=== PATIENT | male | born 1945 | race Caucasian/White ===

== ENCOUNTER 2017-09-07 06:24 | Inpatient (IN) ==
[2017-09-07] MEDS ORDERED: Vancomycin 1,000 MG in D5% in Water 250 ML IVPB ONE ×3 (06:59→21:00)
[2017-09-07] MEDS ORDERED: Lidocaine -MPF 1% 2 ML VIAL ID ONE (06:59)
[2017-09-07] MEDS ORDERED: CeFAZolin Syr 2,000MG/20 ML 2,000 MG/20 ML SYRINGE IVPB ONE (06:59)
[2017-09-07] MEDS ORDERED: Ringers Solution, Lactated 1,000 ML IVC SCH (07:00)
--- NOTE | 2017-09-07 07:08 | Anesthesia Evaluation PreOp ---
Date of Encounter: 09/07/17 Time of Encounter: 07:06 - Past History Planned Operation: left Fem-Pop BPG Cardiac History: HTN, Hyperlipidemia, Other (CAD, PAD, carotid stenosis, LLE claudication, severe pulm htn) Pulmonary History: Smoker, COPD NEUROLOGY HOSPITALIST History: Denies Any Significant HX Other Medical History: Thyroid (hypo) Alcohol Use: none Drug use: none Medications and Allergies Aspirin [Lo-Dose Aspirin EC] 81 mg PO DAILY 03/10/17 [History] Atorvastatin [Lipitor] 80 mg PO HS 03/10/17 [History] HYDROcodone/Acet 10/325 mg [[place] 10-325 mg] 1 tab PO Q4H PRN 03/10/17 [History] Isosorbide MONOnitrate (24 HR) [Imdur] 30 mg PO DAILY 03/10/17 [History] amLODIPine [Norvasc] 5 mg PO DAILY 03/10/17 [History] Budesonide/Formoterol 160/4.5 [Symbicort 160/4.5] 1 puff IH DAILY 07/19/17 [ History] Albuterol Sulfate [Albuterol Inhaler] 2 puff IH QID PRN 09/07/17 [History] Alfuzosin HCl [Uroxatral] 10 mg PO DAILY 09/07/17 [History] Ammonium Lactate [Zina-Hydrolac] 1 appl TP BID 09/07/17 [History] Buspirone HCl [Buspar] 5 mg PO BID 09/07/17 [History] Cilostazol [Pletal] 100 mg PO BID 09/07/17 [History] Diclofenac Sodium [Voltaren] 75 mg PO BID PRN 09/07/17 [History] Levothyroxine [Synthroid] [place] [address]/07/17 [History] Methyl Salicylate/Menthol [Arthritis Hot Pain Relief Crm] 1 appl TP QID PRN [History] Nitroglycerin [Nitrostat] 0.4 mg SL Q5M PRN 09/07/17 [History] 3 Allergy/AdvReac Type Severity Reaction Status Date / Time No Known Allergies Allergy Verified 09/07/17 06:49 - Meds/Allergy Pre-op Review Medications Reviewed: Yes Allergies Reviewed: Yes Beta Blockers on Current Med List: No Anesthesia Results - Labs Laboratory Tests 09/01/17 09/01/17 11:04 11:04 Hgb 12.8 L Hct 38.0 Sodium 138 Potassium 4.1 BUN 14 Creatinine 0.86 - Imaging EKG: report reviewed (SINUS BRADYCARDIA) Additional studies: cath : Impressions: Minimal atherosclerotic coronary artery disease. The left ventricle is normal and has abnormal contractility EF 70% echo: mpressions: Sinus bradycardia. HR low 40s. LVEF 60%. Normal LV chamber size, wall thickness and function. Indeterminate diastolic function. Normal right ventricular structure and function. No significant valvular disease. Severe pulmonary hypertension. Estimated RVSP 61 mmHg. carotid studies: Impressions: Findings: Bilateral carotid system have nonstenotic plaque. Anesthesia Exam Selected Entries 09/07/17 06:55 Temperature 97.9 F Pulse Rate 69 Respiratory Rate 18 Blood Pressure 103/62 O2 Sat by Pulse Oximetry 94 - HEENT Pupil (Motor): EOMI Mallampati: II Teeth: Edentulous Oral Opening: Greater than 3 - NEUROLOGY HOSPITALIST LOC: Oriented NEUROLOGY HOSPITALIST Motor: Normal RUE, Normal LUE, Normal RLE, Normal LLE, Normal Face NEUROLOGY HOSPITALIST Sensory: Normal: RUE, LUE, RLE, LLE, Face - Cardiac Rhythm: Regular Murmur: None - Pulmonary Breath Sounds: bilateral Clear Respiratory Effort: Symmetrical Anesthesia Assess/Plan ASA Score: 3 Modified Spencer Scale for Level of Consciousness: Cooperative, oriented, and tranquil Anesthetic Plan: General Monitoring Plan: Standard Monitors, A-Line Recovery Plan: PACU (discussed risks of GA and a-line, agrees to proceed)
[2017-09-07] MEDS ORDERED: Albuterol 2.5 MG/3 ML NEBULIZER ONE (07:10)
[2017-09-07] MEDS ORDERED: Albuterol 2.5 MG/3 ML NEBULIZER IH ONE (07:16)
--- NOTE | 2017-09-07 07:33 | History & Physical Report ---
Date of Encounter: 09/07/17 Time of Encounter: 07:30 24 Hour HP Update - Instructions Instructions: If the History and Physical is less than 30 days old and was completed prior to A.M. admission and or procedure and has NOT been updated on calendar day of procedure please complete this update prior to performing procedure. - Update Patient reports changes in Medical Condition: No Changes in examination, assessment, or condition: No Changes in Medication: No Preop tests/diagnostics Reviewed: Yes Surgery Remains Indicated: Yes Consent for Planned Operative Procedure(s) Verified: Yes - Pre-Operative Checklist Preoperative Checklist Indicated: Yes Prophylactic Antibiotic Ordered: Yes (Vancomycin due to MRSA risk) Home Medications Include Beta Kailyn: No Beta Kailyn Taken Today (Day of Surgery): No Beta Kailyn Taken Yesterday (Day Prior to Surgery): No Is VTE Prophylaxis Indicated?: Yes
[2017-09-07] MEDS ORDERED: Heparin 1,000 UNITS/500 mL 500 ML ONE ×2 (07:48→09:19)
[2017-09-07] MEDS ORDERED: *HR* Phenylephrine 10 MG/ML VIAL ONE (08:34)
[2017-09-07] MEDS ORDERED: Lidocaine -MPF 4% 5 ML AMPUL ONE (08:34)
[2017-09-07] MEDS ORDERED: Ondansetron 4 MG/2 ML VIAL ONE (08:34)
[2017-09-07] MEDS ORDERED: Lidocaine -MPF 2% 2 ML VIAL ONE ×3 (08:34→10:12)
[2017-09-07] MEDS ORDERED: *HR* Propofol 200 MG/20 ML VIAL IVP ONE (08:34)
[2017-09-07] MEDS ORDERED: *HR* FentaNYL (PF) 100 MCG/2 ML VIAL ONE ×2 (08:34→10:57)
[2017-09-07] MEDS ORDERED: *HR* Midazolam HCl 2 MG/2 ML VIAL ONE (08:34)
[2017-09-07] MEDS ORDERED: *HR* Succinylcholine 200 MG/10 ML VIAL IVP ONE (08:34)
[2017-09-07] MEDS ORDERED: Dexamethasone 4 MG/ML VIAL ONE (08:34)
[2017-09-07] MEDS ORDERED: *HR* Rocuronium Bromide 50 MG/5 ML VIAL ONE (08:34)
[2017-09-07] MEDS ORDERED: Vancomycin 1,000 MG VIAL ONE (09:18)
[2017-09-07] MEDS ORDERED: Lacri-Lube 3.5 GM TUBE ONE (09:57)
[2017-09-07] MEDS ORDERED: EPHEDrine 50 MG/ML VIAL ONE (10:00)
[2017-09-07] MEDS ORDERED: *HR* Heparin 5,000 UNIT/ML VIAL ONE (10:58)
[2017-09-07] MEDS ORDERED: *HR* Promethazine 25 MG/ML VIAL IVP PRN (11:30)
[2017-09-07] MEDS ORDERED: *HR* Labetalol 20 MG/4 ML SYRINGE IVP PRN ×2 (11:30→13:46)
[2017-09-07] MEDS ORDERED: Ondansetron 4 MG/2 ML VIAL IVP ONE (11:30)
--- NOTE | 2017-09-07 12:38 | Operative Note ---
Date of procedure: 09/07/17 Pre-op diagnosis: Peripheral vascular disease with disabling claudication Post-op diagnosis: same Procedure: 1. Left common and deep femoral thromboendarterectomy. 2. Left common femoral artery to above knee popliteal artery bypass with 6mm Distflo minicuff graft. Complications: None Anesthesia: GETA Surgeon: Mack Hanley Was there an physician assistant certified present: No Estimated blood loss (cc): 100 Specimen: Left femoral plaque Condition: stable Disposition: PACU Procedure in Detail: Indications: The patient is a 72 year old male with a history of peripheral vascular disease with severe disabling left lower extremity claudication. Angiography revealed left femoral to popliteal artery disease including a superficial femoral artery occlusion. Revascularization was recommended for symptomatic relief. Procedure: The patient was identified in the preoperative area. The risks, benefits, and alternatives of the procedure were discussed. All questions were answered. The patient was taken to the operating room and placed in supine position on the operating room table. After the induction of general endotracheal anesthesia, he was cleaned and draped in normal sterile fashion. An oblique incision was made over the left groin sharply. Hemostasis was obtained with electrocautery. Through a process of blunt, sharp, and electrocautery dissection, the left common, deep and superficial femoral arteries were dissected circumferentially and surrounded with vessel loops. An incision was made on the left medial distal thigh sharply. Hemostasis was obtained with electrocautery. Through a process of blunt, sharp, and electrocautery dissection, the above-knee popliteal artery was dissected proximally and distally and surrounded with vessel loops. The Distaflo graft was tunneled between the popliteal and femoral incisions. The patient received 5000 units of heparin intravenously. After waiting adequate time for the heparin to circulate, tension was applied to the popliteal artery vessel loops. The popliteal artery was occluded and a longitudinal arteriotomy was made in the popliteal artery. The distal end of the graft was sutured in place with a running 6-0 Prolene. The distal arterial anastomosis was not completed at this time. Tension was applied to the femoral vessel loops. An arteriotomy was made in the common femoral artery. Stenotic partially occlusive plaque was noted in the common and deep femoral artery. A dental freer was used to perform a thromboendarterectomy on the common and deep femroal arteries. Significant retrograde deep femoral flow was noted after the endarterectomy and strong pulsatile antegrade flow was noted. The graft was cut to fit the arteriotomy and sutured in place with a running 6-0 prolene. Flow was restored in the femoral vessels by releasing tension from the loops. The graft was flamped with an atraumatic clamp. The popliteal vessels were flushed and then reoccluded. Heparinized saline was infused into the lumen. The popliteal anastamosis was cmpleted and then tied. Flow was restored by releasing tension on the vessel loops. Polyphasic signals were noted distal to the distal anastomosis as well as at the posterior tibial artery. Wounds were irrigated with antibiotic-containing saline. Thrombin and gelfoam were used to aid in hemostasis. Platelet rich and platelet poor plasma were infused into the wounds. Meticulous hemostasis was obtained throughout the wound with electrocautery. Wounds were reapproximated with layers of 2-0 and 3- 0 Vicryl. Skin was reapproximated with 3-0 Monocryl. Sterile dressing was applied. The patient was extubated and taken to recovery room in stable condition.
[2017-09-07] MEDS: *HR* HYDROmorphone (PF) 1 MG/ML SYRINGE IVP PRN ×2 (13:01→13:07)
--- NOTE | 2017-09-07 13:42 | Anesthesia Evaluation Post Op ---
Date of Encounter: 09/07/17 Time of Encounter: 13:44 - Vital Signs Vital Signs: Vital Signs - Last 8 Hours Temp Pulse Resp BP Pulse Ox 09/07/17 13:34 97.7 F 64 16 120/63 94 09/07/17 13:24 97.7 F 66 18 114/63 92 09/07/17 13:14 64 14 105/58 92 09/07/17 13:04 97.1 F L 70 12 103/64 92 09/07/17 12:54 67 13 117/54 92 09/07/17 12:44 71 15 115/58 92 09/07/17 12:34 97.0 F L 70 12 116/61 94 09/07/17 07:31 18 103/62 94 09/07/17 06:55 97.9 F 69 18 103/62 94 Intake and Output 09/06/17 09/07/17 09/07/17 23:59 07:59 15:59 Output Total 300 / 300 Balance -300 / -300 Output: Estimated Blood Loss 100 / 100 Urine Amount (Catheter) 200 / 200 Other: Weight 60.328 kg Patient Weight 09/07/17 23:59 Weight 60.328 kg - Lungs Lungs: Clear Ascult./Percussion - Airway Airway: Non-obstructed - Cardiovascular Regular Rate, Baseline Rhythm - Mental Status Mental Status: Alert & Oriented, Answers Appropriately - Pain Pain Scale: 0 Pain Scale used: Numeric (1 - 10) - Nausea Vomiting Nausea Vomiting: Not Present - Hydration Hydration: Tolerates oral liquids - Discharge PostOp Status: Transfer Patient to floor
[2017-09-07] MEDS ORDERED: *HR* HYDROcodone/Acet 5/325 mg TABLET PO PRN (13:46)
[2017-09-07] MEDS ORDERED: Acetaminophen 325 MG TABLET PO PRN (13:46)
[2017-09-07] MEDS ORDERED: Ondansetron 4 MG/2 ML VIAL IVP PRN (13:46)
[2017-09-07] MEDS ORDERED: Naloxone 0.4 MG/ML INJ IVP PRN (13:46)
[2017-09-07] MEDS ORDERED: Diclofenac Sodium 75 MG TABLET PO PRN (13:46)
[2017-09-07] MEDS: *HR* Morphine 2 MG/ML SYRINGE IVP PRN ×2 (13:55→20:02)
[2017-09-07] MEDS: *HR* OxyCODONE Immed Rel 5 MG TABLET PO PRN ×2 (15:12→21:12)
[2017-09-07] MEDS: *HR* Metoprolol 5 MG/5 ML VIAL IVP SCH (17:39)
[2017-09-07] MEDS: CeFAZolin Premix DUPLEX 2,000 MG/50 ML BAG IVPB SCH (17:44)
[2017-09-07] MEDS: Budesonide/Formoterol 160/4.5 MDI IH SCH (19:50)
[2017-09-07] MEDS: Ammonium Lactate 30 APPL/225 GM BOTTLE TP SCH (21:12)
[2017-09-08] MEDS: *HR* Metoprolol 5 MG/5 ML VIAL IVP SCH ×2 (00:24→05:47)
[2017-09-08] MEDS: *HR* Morphine 2 MG/ML SYRINGE IVP PRN ×4 (00:31→08:21)
[2017-09-08] MEDS: CeFAZolin Premix DUPLEX 2,000 MG/50 ML BAG IVPB SCH (02:36)
[2017-09-08 04:21] LABS: Basophils % 0.2 %; Eosinophils % 0.1 %; Hematocrit 32.4 % (37.5-50.1); Immature Granulocytes % 0.5 % (0-4); Lymphocytes # 1.3 K/mcL (0.6-4.6); Lymphocytes % 16.1 %; Mean Corpuscular HGB Conc 34.6 g/dL (31.6-35.5); Mean Corpuscular Hemoglobin 32.6 pg (28.0-33.3); Mean Corpuscular Volume 94.2 fL (83.0-100.0); Mean Platelet Volume 9.1 fL (9.4-12.4); Monocytes # 0.8 K/mcL (0.0-1.3); Monocytes % 10.2 %; Platelet Count 194 K/mcL (140-400); Red Blood Count 3.44 M/mcL (4.19-5.50); Red Cell Distribution Width 15.5 % (11.5-14.5); Segmented Neutrophils % 72.9 %
[2017-09-08 04:24] LABS: Hemoglobin 11.2 g/dL (12.9-16.9)
[2017-09-08 04:44] LABS: BUN/Creatinine Ratio 12 (6-26); Blood Urea Nitrogen 9 mg/dL (8-23); Calcium 8.8 mg/dL (8.6-10.3); Carbon Dioxide 25 mEq/L (23-29); Chloride 106 mEq/L (98-107); Glucose 97 mg/dL (70-105); Osmolality,Calculated 285 (280-300); Potassium 3.9 mEq/L (3.5-5.1); Sodium 138 mEq/L (136-145); eGFR For African Americans > 60 (> 60); eGFR For Non-African Americans > 60 (> 60)
[2017-09-08] MEDS: *HR* OxyCODONE Immed Rel 5 MG TABLET PO PRN (05:51)
[2017-09-08] MEDS ORDERED: *HR* Heparin 5,000 UNIT/ML VIAL SQ SCH ×2 (06:00)
--- NOTE | 2017-09-08 06:37 | Discharge Summary ---
Date of Encounter: 09/08/17 Time of Encounter: 07:25 - Discharge Diagnosis (1) Atherosclerosis of [place] arteries of extremities with intermittent claudication, left leg Priority: Primary Status: Chronic Comments: The patient is postoperative day #1 after a left femoral endarterctomy and left femoral to popliteal artery bypass. His wounds are healing. He has palpable pedal pulses. He will be discharged today. (2) Essential hypertension Priority: Primary Status: Chronic (3) COPD (chronic obstructive pulmonary disease) Priority: Secondary Status: Chronic Qualifiers: COPD type: emphysema Emphysema type: panlobular Qualified Code(s): J43.1 - Panlobular emphysema (4) CAD (coronary artery disease) Priority: Secondary Status: Chronic Qualifiers: Coronary Disease-Associated Artery/Lesion type: [place] artery [place] vs. transplanted heart: [place] heart Associated angina: without angina Qualified Code(s): I25.10 - Atherosclerotic heart disease of [place] coronary artery without angina pectoris (5) Chronic anemia Priority: Secondary Status: Chronic Comments: The patient has chronic anemia. He is hemodynamically stable without evidence of ongoing blood loss. - Discharge Medications Prescriptions: OxyCODONE/APAP 5/325 [Percocet 5/325 MG] 1 each PO Q6HR PRN 7 Days #25 tablet PRN Reason: POSTOPERATIVE PAIN Home Medications: Aspirin [Lo-Dose Aspirin EC] 81 mg PO DAILY 03/10/17 [History] Atorvastatin [Lipitor] 80 mg PO HS 03/10/17 [History] HYDROcodone/Acet 10/325 mg [[place] 10-325 mg] 1 tab PO Q4H PRN 03/10/17 [History] Isosorbide MONOnitrate (24 HR) [Imdur] 30 mg PO DAILY 03/10/17 [History] amLODIPine [Norvasc] 5 mg PO DAILY 03/10/17 [History] Budesonide/Formoterol 160/4.5 [Symbicort 160/4.5] 2 puff IH BID 07/19/17 [ History] Albuterol Sulfate [Albuterol Inhaler] 2 puff IH QID PRN 09/07/17 [History] Alfuzosin HCl [Uroxatral] 10 mg PO DAILY 09/07/17 [History] Ammonium Lactate [Zina-Hydrolac] 1 appl TP BID 09/07/17 [History] Buspirone HCl [Buspar] 5 mg PO BID 09/07/17 [History] Cilostazol [Pletal] 100 mg PO BID 09/07/17 [History] Diclofenac Sodium [Voltaren] 75 mg PO BID PRN 09/07/17 [History] Levothyroxine [Synthroid] 50 mcg PO 0630 09/07/17 [History] Methyl Salicylate/Menthol [Arthritis Hot Pain Relief Crm] 1 appl TP QID PRN [History] Nitroglycerin [Nitrostat] 0.4 mg SL Q5M PRN 09/07/17 [History] OxyCODONE/APAP 5/325 [Percocet 5/325 MG] 1 each PO Q6HR PRN 7 Days #25 tablet [Rx] Allergies/Adverse Reactions: 3 Allergy/AdvReac Type Severity Reaction Status Date / Time No Known Allergies Allergy Verified 09/07/17 06:49 Date of admission: 09/07/17 13:45 Primary care physician: PCP DC Procedure(s) Performed: Left femoral endarterectomy, left femoral to popliteal artery bypass. Discharging clinician: Mack Hanley Anticipated date of discharge: 09/08/17 - Patient Status Disposition: Home, Self-Care Condition: Good Functional capacity at discharge: independent ambulation Overall status at discharge: patient is back to baseline - Discharge Instructions Follow Up With: Mack Hanley MD [Partnered Physician] - 10/09/17 9:50 am DC,PCP [Primary Care Provider] - 09/12/17 11:30 am Additional Instructions: May remove bandage and shower on 09/09/17. Wash wound gently and pat to dry. Apply dry gauze to wound daily for 7 days. No tub baths or swimming until 09/30/17. Call Dr. Hanley at [phone] with questions or concerns. - Diet and Activity Activity: increase activity as tolerated Diet: advance to your usual diet - Hospital Course Hospital course: Mr. Barkley is a 72 year old male admitted on 09/07/17. He underwent a left femoral endarterectomy and left femoral to popliteal artery bypass. He was discharged on postoperative day #1 without complication. - Time Spent with Patient Total time spent providing and/or coordinating discharge services: Exam Vital Signs, Last 4 Hours Temp Pulse Resp BP Pulse Ox 09/08/17 04:00 46 144/75 09/08/17 03:15 98.4 F 50 19 142/67 94 General: Present: Conversant, No Apparent Distress Cardiac: Present: Reg Rate and Rhythm Lungs: Present: Normal Breath Sounds Neuro: Present: Alert and responsive, No focal deficits noted Abdomen: Present: Soft Vascular: Present: Normal capillary refill, Pulse, normal, Surgical incisions ( clean and dry without erythema or hematoma). Absent: Cyanosis, Edema - VTE Documentation of Mechanical Device: Intermittent pneumatic compression device
[2017-09-08 07:53] VITALS: BP 139/81
[2017-09-08] MEDS: Budesonide/Formoterol 160/4.5 MDI IH SCH (08:17)
[2017-09-08] MEDS: Ammonium Lactate 30 APPL/225 GM BOTTLE TP SCH (08:21)
[2017-09-08] MEDS ORDERED: Aspirin Enteric Coated 81 MG Tablet PO SCH (09:00)
[2017-09-08] MEDS ORDERED: Isosorbide MONOnitrate (24 HR) 30 MG TAB.ER.24H PO SCH (09:00)
[2017-09-08] MEDS ORDERED: amLODIPine 5 MG TABLET PO SCH (09:00)
== END 2017-09-08 10:34 | disposition home or self-care (01) | DRG 254 ==
LOC: SAMDAY 06:24 → 2NNU 13:45
PROVIDERS: ADMIT Surgery; ATTEND Surgery

== ENCOUNTER 2018-01-12 06:34 | Inpatient (IN) ==
[~2018-01-12 06:34] MED LIST: Vancomycin 1,000 MG, Sodium Chloride IRRigation 1,000 ML IR ONE
[2018-01-12] MEDS ORDERED: Albuterol 2.5 MG/3 ML NEBULIZER IH ONE (06:58)
[2018-01-12] MEDS ORDERED: Lidocaine -MPF 4% 5 ML AMPUL ONE (07:18)
[2018-01-12] MEDS ORDERED: Heparin 1,000 UNITS/500 mL 0 ML ONE (07:21)
--- NOTE | 2018-01-12 07:38 | Anesthesia Evaluation PreOp ---
Date of Encounter: 01/12/18 Time of Encounter: 07:35 - Past History Planned Operation: L-Fem Pop Bypass Cardiac History: [place] (CAD), HTN, Hyperlipidemia, Other (pVD w/ LE claudicaiton) Pulmonary History: Smoker, COPD, Other (SEVERE PulmHtn per ECHO 04/2017) SE[employer] [place] B[employer]ER History: Other (PTSD, RA) Other Medical History: Thyroid Anesthesia History: No Prior Anesthetic Complications, Past Anesthesia (Cardiac Cath, L-common & deep Femoral Thromboendaretectomy,) Alcohol Use: none Drug use: none Medications and Allergies Aspirin [Lo-Dose Aspirin EC] 81 mg PO DAILY 03/10/17 [History] Atorvastatin [Lipitor] 80 mg PO HS 03/10/17 [History] HYDROcodone/Acet 10/325 mg [[place] 10-325 mg] 1 tab PO Q4H PRN 03/10/17 [History] Isosorbide MONOnitrate (24 HR) [Imdur] 30 mg PO DAILY 03/10/17 [History] amLODIPine [Norvasc] 5 mg PO DAILY 03/10/17 [History] Budesonide/Formoterol 160/4.5 [Symbicort 160/4.5] 2 puff IH BID 07/19/17 [ History] Albuterol Sulfate [Albuterol Inhaler] 2 puff IH QID PRN 09/07/17 [History] Alfuzosin HCl [Uroxatral] 10 mg PO DAILY 09/07/17 [History] Ammonium Lactate [Zina-Hydrolac] 1 appl TP BID 09/07/17 [History] Buspirone HCl [Buspar] 5 mg PO BID 09/07/17 [History] Cilostazol [Pletal] 100 mg PO BID 09/07/17 [History] Diclofenac Sodium [Voltaren] 75 mg PO BID PRN 09/07/17 [History] Levothyroxine [Synthroid] 50 mcg PO 0630 09/07/17 [History] Methyl Salicylate/Menthol [Arthritis Hot Pain Relief Crm] 1 appl TP QID PRN [History] Nitroglycerin [Nitrostat] 0.4 mg SL Q5M PRN 09/07/17 [History] OxyCODONE/APAP 5/325 [Percocet 5/325 MG] 1 each PO Q6HR PRN 7 Days #25 tablet [Rx] Gabapentin [Neurontin] 200 mg PO TID 01/12/18 [History] Nicotine Patch [Nicoderm] 21 mg TD DAILY 01/12/18 [History] 3 Allergy/AdvReac Type Severity Reaction Status Date / Time No Known Allergies Allergy Verified 09/07/17 06:49 - Meds/Allergy Pre-op Review Medications Reviewed: Yes Allergies Reviewed: Yes Beta Blockers on Current Med List: No Anesthesia Results - Labs Laboratory Tests 01/11/18 01/11/18 01/11/18 08:23 08:23 08:23 WBC 6.4 Hgb 11.7 L Hct 34.1 L Plt Count 221 PT 11.6 INR 1.1 APTT 28.7 Sodium 139 Potassium 3.9 Chloride 108 H Carbon Dioxide 26 BUN 15 Creatinine 0.87 Est GFR (Non-Af Amer) > 60 Calcium 9.3 ECHO 04/2017 Impressions: Sinus bradycardia. HR low 40s. LVEF 60%. Normal LV chamber size, wall thickness and function. Indeterminate diastolic function. Normal right ventricular structure and function. No significant valvular disease. Severe pulmonary hypertension. Estimated RVSP 61 mmHg. Left Ventricular Wall Motion: Rest Echo Findings All wall segments showed normal motion. - Imaging EKG: image reviewed (46bpm - SINUS BRADYCARDIA Electronically Signed On 2016 11:21:43 EDT by Reynaldo Gonzalez MD) Anesthesia Exam O2 Sat Height 1.78 m Height 1.78 m Weight 61.235 kg Weight 61.235 kg O2 Sat by Pulse Oximetry 94 Vital Signs Temp Pulse Resp BP Pulse Ox 97.7 F 54 18 126/56 94 01/12/18 06:50 01/12/18 06:50 01/12/18 06:50 01/12/18 06:50 01/12/18 06:50 Weight: 5'10" NPO (# of Hours): 135# BMI = 19.4 - HEENT Pupil (Motor): Pupils equal, EOMI Mallampati: II Teeth: Edentulous Oral Opening: Greater than 3 - [employer] [place] B[employer]ER LOC: Oriented [employer] [place] [employer] Motor: Normal RUE, Normal LUE, Normal RLE, Normal LLE, Normal Face [employer] [place] [employer] Sensory: Normal: RUE, LUE, RLE, LLE, Face - Cardiac Rhythm: Regular Murmur: None - Pulmonary Breath Sounds: bilateral Clear Respiratory Effort: Symmetrical Anesthesia Assess/Plan ASA Score: 3 (CAD, PVDz, HTN, Chol, Smoker, COPD) Anesthetic Plan: General Monitoring Plan: Standard Monitors, A-Line Recovery Plan: PACU Anes Supervising Prov Stmt: Pt seen/evaluated, R&B Discussed, questions answered and consent obtained. - MD Taz
[2018-01-12] MEDS ORDERED: *HR* Propofol 200 MG/20 ML VIAL IVP ONE (07:44)
[2018-01-12] MEDS ORDERED: *HR* FentaNYL (PF) 100 MCG/2 ML VIAL ONE ×2 (07:44→10:46)
[2018-01-12] MEDS ORDERED: Famotidine 20 MG/2 ML VIAL IVP ONE (07:46)
[2018-01-12] MEDS ORDERED: Acetaminophen IV 1,000 MG/100 ML INFUS..BTL IVPB ONE (07:46)
[2018-01-12] MEDS ORDERED: Pregabalin 75 MG CAPSULE PO ONE (07:47)
[2018-01-12] MEDS: Ringers Solution, Lactated 1,000 ML IVC SCH ×2 (07:56→12:41)
[2018-01-12] MEDS ORDERED: Heparin 1,000 UNITS/500 mL 1,000 ML ONE (07:58)
[2018-01-12] MEDS ORDERED: *HR* LORazepam 1 MG TABLET PO PRN (07:59)
--- NOTE | 2018-01-12 08:02 | History & Physical Report ---
Date of Encounter: 01/12/18 Time of Encounter: 07:58 24 Hour HP Update - Instructions Instructions: If the History and Physical is less than 30 days old and was completed prior to A.M. admission and or procedure and has NOT been updated on calendar day of procedure please complete this update prior to performing procedure. - Update Patient reports changes in Medical Condition: No Changes in examination, assessment, or condition: No Changes in Medication: No Preop tests/diagnostics Reviewed: Yes Surgery Remains Indicated: Yes Consent for Planned Operative Procedure(s) Verified: Yes - Pre-Operative Checklist Preoperative Checklist Indicated: Yes Prophylactic Antibiotic Ordered: Yes (vancomycin due to MRSA risk) Home Medications Include Beta Kailyn: No Beta Kailyn Taken Today (Day of Surgery): No Beta Kailyn Taken Yesterday (Day Prior to Surgery): No Is VTE Prophylaxis Indicated?: Yes
[2018-01-12] MEDS ORDERED: CeFAZolin Syr 2,000MG/20 ML 2,000 MG/20 ML SYRINGE IVPB ONE (08:09)
[2018-01-12] MEDS ORDERED: Ondansetron 4 MG/2 ML VIAL ONE (09:05)
[2018-01-12] MEDS ORDERED: Neostigmine Methylsulfate 3 MG/3 ML SYRINGE ONE (09:05)
[2018-01-12] MEDS ORDERED: Dexamethasone 4 MG/ML VIAL ONE (09:05)
[2018-01-12] MEDS ORDERED: Lidocaine -MPF 2% 2 ML VIAL ONE (09:05)
[2018-01-12] MEDS ORDERED: *HR* Rocuronium Bromide 50 MG/5 ML VIAL ONE (09:05)
[2018-01-12] MEDS ORDERED: *HR* Succinylcholine 200 MG/10 ML VIAL IVP ONE (09:05)
[2018-01-12] MEDS ORDERED: MORPHINE SUL Oral CONC 10 MG/0.5 ML ORAL.SYG SL PRN (09:07)
[2018-01-12] MEDS ORDERED: *HR* OxyCODONE Immed Rel 5 MG TABLET PO PRN (09:07)
[2018-01-12] MEDS ORDERED: *HR* HYDROmorphone 2 MG TABLET PO PRN (09:07)
[2018-01-12] MEDS ORDERED: *HR* Meperidine 25 MG/ML SYRINGE IVP PRN (09:07)
[2018-01-12] MEDS ORDERED: *HR* Labetalol 20 MG/4 ML SYRINGE IVP PRN ×2 (09:07→13:10)
[2018-01-12] MEDS ORDERED: Ondansetron 4 MG/2 ML VIAL IVP ONE (09:07)
[2018-01-12] MEDS ORDERED: EPHEDrine 50 MG/ML VIAL ONE ×2 (09:16→10:02)
[2018-01-12] MEDS ORDERED: *HR* PHENYLEPHRINE 1,000 MCG/10 ML SYRINGE IVP ONE (09:19)
[2018-01-12] MEDS ORDERED: *HR* Phenylephrine 10 MG/ML VIAL ONE (10:10)
--- NOTE | 2018-01-12 11:36 | Operative Note ---
Date of procedure: 01/12/18 Pre-op diagnosis: Peripheral vascular disease with disabling claudication Post-op diagnosis: same Procedure: 1. Left common femoral to above knee popliteal artery bypass graft thrombectomy. 2. Left common femoral endarterectomy. Complications: None Anesthesia: GETA Surgeon: Mack Hanley Was there an nurseryman assistant present: No Estimated blood loss (cc): 50 Specimen: Left lower extremity thrombus and plaque Condition: stable Disposition: PACU Procedure in Detail: Indications: The patient is a 72 year old male with a history of peripheral vascular disease with disabling claudication, hypertension, hyperlipidemia and tobacco abuse. He has previously undergone a left femoral to above knee popliteal artery bypass for a left superficial femoral artery occlusion. He presented to clinic with progressive disabling left lower stomach claudication. An arterial duplex revealed that his graft was occluded graft was occluded. Thrombectomy with possible revision was recommended to alleviate his symptoms and reduce his risk of limb loss. Procedure: The patient was identified in the preoperative area. The risks, benefits and alternatives were discussed and all questions were answered. The patient was taken to the operating room and placed in the supine position on the operating room table. After the induction of general endotracheal anesthesia, the patient was cleaned and draped in the normal sterile fashion. An oblique incision was made sharply through her previous left groin scar overlying the femoral vessels. Hemostasis was obtained with electrocautery. Through a process of blunt, sharp and electrocautery dissection, the distal external iliac, deep and superficial femoral arteries were dissected and surrounded with vessel loops. The proximal limb of the left femoral to popliteal artery bypass graft was also dissected and surrounded with vesel loops. The patient received a 5000 unit bolus of heparin. After waiting adequate time for the heparin to circulate, the vessels and graft were occluded with the vessel loops and atraumatic vascular clamps. A longitudinal arteriotomy was made into the [place] of the bypass graft. No flow was noted on release of the loops. A [address] lucian jenn catheter was passed into the femoral to popliteal artery bypass and inflated. It was withdrawn and some acute thrombus and chronic embolic material was retrieved. Multiple passes were performed until no additional material was retrieved. The specimen was sent to pathology. Retrograde flow was noted at this time. Intimal hyperplasia and plaque was noted to be present along the common femoral artery extending into the anastomosis. Using a dental freer, an endarectomy was performed on the deep femoral artery. Upon completion of the endarterectomy , pulsatile antegrade flow was noted. The graftotomy was reapproximated with a running 6-0 prolene. Prior to completing the closure, the vessels were flushed, the graft was flushed heparin was infused into the lumen. Flow was restored in the [place] vessels and graft. Polyphasic signals were identified in the posterior tibial and dorsalis pedis arteries below the ankle. The wound was irrigated with antibiotic containing saline. Hemostasis was obtained with electrocautery. Platelet rich and platelet poor plasma were infused into the wound. The wound was reapproximated with 2-0 and 3-0 vicryl. Skin was reapproximated with 3-0 Monocryl. Sterile dressings were applied. The patient was extubated and taken to the recover room in stable condition.
--- NOTE | 2018-01-12 11:41 | Discharge Summary ---
<Marcin Moore - Last Filed: 01/13/18 09:29> Orders not resulted at time of discharge: Pending orders 01/12/18 08:42 Red Blood Cells [BBK] Routine 01/12/18 11:32 Surgical Pathology [PTH] Routine Date of Encounter: 01/13/18 Time of Encounter: 09:00 - Hospital Course Hospital course: Mr. Barkley is a 72 year old male - Time Spent with Patient Total time spent providing and/or coordinating discharge services: - Discharge Medications Home Medications: Aspirin [Lo-Dose Aspirin EC] 81 mg PO DAILY 03/10/17 [History] Atorvastatin [Lipitor] 80 mg PO HS 03/10/17 [History] HYDROcodone/Acet 10/325 mg [[place] 10-325 mg] 1 tab PO Q4H PRN 03/10/17 [History] Isosorbide MONOnitrate (24 HR) [Imdur] 30 mg PO DAILY 03/10/17 [History] amLODIPine [Norvasc] 5 mg PO DAILY 03/10/17 [History] Budesonide/Formoterol 160/4.5 [Symbicort 160/4.5] 2 puff IH BID 07/19/17 [ History] Albuterol Sulfate [Albuterol Inhaler] 2 puff IH QID PRN 09/07/17 [History] Alfuzosin HCl [Uroxatral] 10 mg PO DAILY 09/07/17 [History] Ammonium Lactate [Zina-Hydrolac] 1 appl TP BID 09/07/17 [History] Buspirone HCl [Buspar] 5 mg PO BID 09/07/17 [History] Cilostazol [Pletal] 100 mg PO BID 09/07/17 [History] Diclofenac Sodium [Voltaren] 75 mg PO BID PRN 09/07/17 [History] Levothyroxine [Synthroid] 50 mcg PO 0630 09/07/17 [History] Methyl Salicylate/Menthol [Arthritis Hot Pain Relief Crm] 1 appl TP QID PRN [History] Nitroglycerin [Nitrostat] 0.4 mg SL Q5M PRN 09/07/17 [History] Clopidogrel [Plavix] 75 mg PO DAILY #30 tablet 01/12/18 [Rx] Gabapentin [Neurontin] 200 mg PO TID 01/12/18 [History] Mirtazapine [Remeron] 7.5 mg PO HS 01/12/18 [History] Nicotine Patch [Nicoderm] 21 mg TD DAILY 01/12/18 [History] OxyCODONE/APAP 5/325 [Percocet 5/325 MG] 1 each PO Q6HR PRN 5 Days #20 tablet [Rx] Allergies/Adverse Reactions: 3 Allergy/AdvReac Type Severity Reaction Status Date / Time No Known Allergies Allergy Verified 09/07/17 06:49 Date of admission: 01/12/18 13:03 Primary care physician: PCP [place] Exam Vital Signs, Last 4 Hours Temp Pulse Resp BP Pulse Ox 01/13/18 07:26 97.7 F 64 16 123/82 98 General: Present: Conversant HEENT: Present: Trachea midline, Pupils equal Cardiac: Present: Reg Rate and Rhythm, Normal S1 and S2, No Murmur Lungs: Present: Normal Breath Sounds, No Wheeze, Rales, Rhonchi Vascular: Present: Normal capillary refill, Pulse, normal, Surgical incisions ( Incision looks great) Skin: Present: No rashes noted on visualized skin Musculoskeletal: Present: No Chest Wall Tenderness - Patient Status Disposition: Home, Self-Care Condition: Good Functional capacity at discharge: independent ambulation Overall status at discharge: patient is back to baseline - Discharge Instructions Instructions: Peripheral Vascular Disorders (DC), Chronic Obstructive Pulmonary Disease (DC), Chronic Hypertension (DC) Follow Up With: Mack Hanley MD [Partnered Physician] - 02/19/18 11:00 am [place],PCP [Primary Care Provider] - 01/19/18 11:00 am (This is in the [facility] office) <Mack Hanley - Last Filed: 01/19/18 05:55> Orders not resulted at time of discharge: Pending orders 01/12/18 08:42 Red Blood Cells [BBK] Routine 01/12/18 11:32 Surgical Pathology [PTH] Routine Date of Encounter: 01/13/18 - Discharge Diagnosis (1) 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 (2) Essential hypertension Priority: Secondary Status: Chronic (3) COPD (chronic obstructive pulmonary disease) Priority: Secondary Status: Chronic Qualifiers: COPD type: emphysema Emphysema type: panlobular Qualified Code(s): J43.1 - Panlobular emphysema (4) CAD (coronary artery disease) Priority: Secondary Status: Chronic Qualifiers: Coronary Disease-Associated Artery/Lesion type: ruby artery [place] vs. transplanted heart: ruby heart Associated angina: without angina Qualified Code(s): I25.10 - Atherosclerotic heart disease of ruby coronary artery without angina pectoris (5) Chronic anemia Priority: Secondary Status: Chronic Comments: The patient has chronic anemia with acute expected postoperative blood loss anemia. He he was hemodynamically stable without evidence of ongoing blood loss. (6) Tobacco abuse Priority: Secondary Status: Acute - Hospital Course Hospital course: Mr. Barkley is a 72 year old male admitted on 01/12/2018 with acute on chronic left lumpectomy ischemia. He underwent a left lower extremity thrombectomy as well as a left femoral endarterectomy. He tolerated the procedure well. He was discharged on postoperative day #1 without complications. - Time Spent with Patient Total time spent providing and/or coordinating discharge services: Primary care physician: PCP NONE Procedure(s) Performed: Left femoral to popliteal artery bypass graft thrombectomy. Discharging clinician: Mack Hanley Anticipated date of discharge: 01/13/18 Exam Vital Signs, Last 4 Hours Resp BP Pulse Ox 01/12/18 08:12 18 126/56 94 - Patient Status Functional capacity at discharge: independent ambulation Overall status at discharge: patient is back to baseline - Diet and Activity Activity: increase activity as tolerated Diet: advance to your usual diet
[2018-01-12] MEDS ORDERED: OXYCODONE Oral CONC 10 MG/0.5 ML ORAL.SYG SL PRN ×2 (13:10)
[2018-01-12] MEDS ORDERED: Naloxone 0.4 MG/ML INJ IVP PRN (13:10)
[2018-01-12] MEDS ORDERED: Ondansetron 4 MG/2 ML VIAL IVP PRN (13:10)
[2018-01-12] MEDS ORDERED: Diclofenac Sodium 75 MG TABLET PO PRN (13:10)
[2018-01-12] MEDS ORDERED: Nitroglycerin 0.4 MG TAB.SUBL SL PRN (13:10)
[2018-01-12] MEDS ORDERED: Acetaminophen 325 MG TABLET PO PRN (13:10)
[2018-01-12] MEDS ORDERED: Methyl Salicylate/Menthol 28 GM TUBE TP PRN (13:10)
[2018-01-12] MEDS: *HR* Metoprolol 5 MG/5 ML VIAL IVP SCH ×2 (13:43→18:09)
[2018-01-12] MEDS: Gabapentin 100 MG CAPSULE PO SCH ×2 (15:07→20:26)
[2018-01-12] MEDS: CeFAZolin Pre 2,000 MG/100 ML 2,000 MG/100 ML BAG IVPB SCH ×2 (15:07→20:28)
--- NOTE | 2018-01-12 15:19 | Anesthesia Evaluation Post Op ---
Date of Encounter: 01/12/18 Time of Encounter: 12:20 - Vital Signs Vital Signs: Vital Signs Temp Pulse Resp BP Pulse Ox 01/12/18 15:00 68 16 120/59 98 01/12/18 14:33 63 16 115/64 99 01/12/18 14:00 56 16 118/57 99 01/12/18 13:45 63 14 120/62 95 01/12/18 13:33 95 01/12/18 13:31 68 16 118/63 95 01/12/18 13:26 66 01/12/18 13:25 69 20 116/60 96 01/12/18 13:20 75 16 121/61 93 01/12/18 13:15 69 14 125/61 95 01/12/18 13:07 97.9 F 75 14 124/57 95 01/12/18 12:50 97.1 F L 77 18 114/57 94 01/12/18 12:40 97.1 F L 59 12 116/59 95 01/12/18 12:30 61 13 117/57 95 01/12/18 12:20 62 12 124/67 95 01/12/18 12:10 97.3 F L 61 13 120/60 95 01/12/18 12:00 60 12 110/53 96 01/12/18 11:50 60 12 100/50 96 01/12/18 11:40 97.1 F L 63 12 108/48 95 01/12/18 08:12 18 126/56 94 01/12/18 06:50 97.7 F 54 18 126/56 94 Intake and Output 01/11/18 01/12/18 01/12/18 23:59 07:59 15:59 Intake Total 1370 / 1370 Output Total 440 / 440 Balance 930 / 930 Intake: IV Fluids 1370 / 1370 Lactated Ringers 1,000 ML @ 25 1000 / 1000 mls/hr IVC .Q24H JEREMÍAS Rx#: [id number] Ofirmev 1,000 mg/100 ml 1,000 100 / 100 mg In 100 ml @ 400 mls/hr IVPB ONCE ONE Rx#:[id number] Ancef Syringe 2,000 MG/20 ML 2, 20 / 20 000 mg In 20 ml @ 200 mls/hr IVPB PREOP ONE Rx#:[id number] Vancocin 1,000 MG In 0.9 % 250 / 250 Sodium Chloride 250 ML @ 167 mls/hr IVPB ONCE ONE Rx#: [id number] Output: Estimated Blood Loss 50 / 50 Urine Amount (Catheter) 40 / 40 Catheter 350 / 350 Other: Weight 61.235 kg Patient Weight 01/12/18 23:59 Weight 61.235 kg - Lungs Lungs: Clear Ascult./Percussion - Airway Airway: Non-obstructed - Cardiovascular Regular Rate - Mental Status Mental Status: Asleep with brisk response to light stimulation - Pain Pain Scale: 0 Pain Scale used: Numeric (1 - 10) - Nausea Vomiting Nausea Vomiting: Not Present - Hydration Hydration: NPO, Moran catheter - Discharge PostOp Status: Transfer Patient to floor Anes Supervising Prov Stmt: Pt seen/evaluated, vSS and pt has met criteria for discharge to floor. -MD Taz
[2018-01-12] MEDS ORDERED: Nicotine 21 MG PATCH.TD24 TD ONE (16:23)
[2018-01-12] MEDS ORDERED: *HR* Heparin 5,000 UNIT/ML VIAL SQ SCH (18:00)
[2018-01-12] MEDS: *HR* Heparin 5,000 UNIT/ML VIAL SQ SCH (18:08)
[2018-01-12] MEDS: *HR* HYDROcodone/Acet 5/325 mg TABLET PO PRN (18:19)
[2018-01-12] MEDS: *HR* OxyCODONE Immed Rel 5 MG TABLET PO PRN (20:25)
[2018-01-12] MEDS: Ammonium Lactate 30 APPL/225 GM BOTTLE TP SCH (20:27)
[2018-01-12] MEDS: Budesonide/Formoterol 160/4.5 MDI IH SCH (20:50)
[2018-01-12] MEDS ORDERED: Mirtazapine 15 MG TABLET PO SCH (21:00)
[2018-01-13] MEDS: *HR* HYDROcodone/Acet 5/325 mg TABLET PO PRN (01:03)
[2018-01-13] MEDS: *HR* Metoprolol 5 MG/5 ML VIAL IVP SCH ×2 (01:03→05:28)
[2018-01-13 05:04] LABS: Basophils % 0.1 %; Hematocrit 32.8 % (37.5-50.1); Hemoglobin 11.4 g/dL (12.9-16.9); Immature Granulocytes % 0.3 % (0-4); Lymphocytes # 1.5 K/mcL (0.6-4.6); Lymphocytes % 18.3 %; Mean Corpuscular HGB Conc 34.8 g/dL (31.6-35.5); Mean Corpuscular Volume 92.1 fL (83.0-100.0); Mean Platelet Volume 9.7 fL (9.4-12.4); Monocytes # 0.7 K/mcL (0.0-1.3); Monocytes % 9.1 %; Neutrophils # 5.7 K/mcL (1.6-8.9); Platelet Count 209 K/mcL (140-400); Red Blood Count 3.56 M/mcL (4.19-5.50); Red Cell Distribution Width 15.6 % (11.5-14.5); Segmented Neutrophils % 72.2 %
[2018-01-13 05:23] LABS: BUN/Creatinine Ratio 17 (6-26); Blood Urea Nitrogen 11 mg/dL (8-23); Carbon Dioxide 23 mEq/L (23-29); Chloride 109 mEq/L (98-107); Glucose 128 mg/dL (70-105); Osmolality,Calculated 285 (280-300); Potassium 3.9 mEq/L (3.5-5.1); Sodium 137 mEq/L (136-145); eGFR For African Americans > 60 (> 60); eGFR For Non-African Americans > 60 (> 60)
[2018-01-13] MEDS: *HR* OxyCODONE Immed Rel 5 MG TABLET PO PRN ×2 (05:26→08:33)
[2018-01-13] MEDS: *HR* Heparin 5,000 UNIT/ML VIAL SQ SCH (05:27)
[2018-01-13 07:29] VITALS: BP 123/82
[2018-01-13] MEDS: Gabapentin 100 MG CAPSULE PO SCH (08:32)
[2018-01-13] MEDS: Ammonium Lactate 30 APPL/225 GM BOTTLE TP SCH (08:34)
[2018-01-13] MEDS ORDERED: Isosorbide MONOnitrate (24 HR) 30 MG TAB.ER.24H PO SCH (09:00)
[2018-01-13] MEDS ORDERED: Aspirin Enteric Coated 81 MG Tablet PO SCH (09:00)
[2018-01-13] MEDS ORDERED: Nicotine 21 MG PATCH.TD24 TD SCH ×2 (09:00)
[2018-01-13] MEDS ORDERED: amLODIPine 5 MG TABLET PO SCH (09:00)
[2018-01-13] MEDS: Budesonide/Formoterol 160/4.5 MDI IH SCH (10:08)
== END 2018-01-13 10:48 | disposition home or self-care (01) | DRG 254 ==
LOC: SAMDAY 06:34 → 2NNU 13:03
PROVIDERS: ADMIT Surgery; ATTEND Surgery